=== PATIENT | male | born 1995 | race Caucasian/White ===

== ENCOUNTER 2017-12-29 05:32 | Emergency (ER) | payer OTHER, SELFPAY ==
[2017-12-29 06:29] LABS: #Lymphocytes 1.5 thou/uL (1.20-3.40); #Monocytes 0.2 thou/uL (0.11-0.59); #Neutrophils 2.7 thou/uL (1.40-6.50); %Basophils 0.7 % (0.0-1.0); %Eosinophils 0.9 % (0.0-10.0); %Monocytes 4.4 % (0.0-10.0); Hemoglobin 17.1 g/dL (14.0-18.0); Mean Corpuscular HGB CONC 34.9 g/dL (32.0-36.0); Mean Corpuscular Hemoglobin 29.9 pg (27.0-31.0); Mean Corpuscular Volume 85.7 fL (78.0-98.0); Mean Platelet Volume 6.6 fL (7.4-10.4); Platelet Count 283 thou/uL (130-400); RBC Distribution Width 11.4 % (11.5-14.5); Red Blood Cell (RBC) Count 5.73 mill/uL (4.70-6.10); White Blood Cell (WBC) Count 4.4 thou/uL (4.8-10.8)
[2017-12-29 06:50] LABS: ALT (SGPT) 28 U/L (8-55); AST (SGOT) 25 U/L (5-34); Albumin 5.5 g/dL (3.5-5.0); Alkaline Phosphatase 115 U/L (40-150); Anion Gap 17 mmol/L (10-20); BUN (Urea Nitrogen) 11 mg/dL (8.9-20.6); Bilirubin, Total 0.6 mg/dL (0.2-1.2); Calc. Creatinine Clearance 0 mL/min (70-130); Calcium 10.3 mg/dL (7.8-10.44); Carbon Dioxide 23 mmol/L (22-29); Chloride 107 mmol/L (98-107); Estimated GFR-MDRD Greater than 90; Globulin 3.9 g/dL (2.4-3.5); Glucose 93 mg/dL (70-105); Lipase 40 U/L (8-78); Potassium 4.1 mmol/L (3.5-5.1); Protein, Total 9.4 g/dL (6.0-8.3); Sodium 143 mmol/L (136-145)
[2017-12-29 06:58] LABS: Bilirubin Negative (Negative); Blood, Urine Negative (Negative); Clarity CLEAR (Clear); Glucose, Urine (Dipstick) Negative (Negative); Leukocyte Negative (Negative); Nitrite Negative (Negative); Protein, Urine (Dipstick) Negative (Neg-Trace); Specific Gravity, Urine 1.004 (1.002-1.036); Urobilinogen 0.2 mg/dL (0.2-1.0)
--- NOTE | 2017-12-29 09:21 | RAD ---
KUB: Date: 12/29/17 INDICATION: 22-year-old male with constipation. COMPARISON: None. FINDINGS: The lung bases are clear. The bowel gas pattern is unobstructed. There is a mild amount of retained s tool predominantly within the hepatic flexure and descending colon. No suspicious calcifications are present. No acute osseous abnormality is noted. 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 IMPRESSION: Mild amount of retained stool within the colon. POS: [facility]
== END 2017-12-29 07:55 | disposition home or self-care (01) ==
LOC: ERS 05:32
DX: K59.00 Constipation, unspecified (principal); K13.21 Leukoplakia of oral mucosa, including tongue; F17.290 Nicotine dependence, other tobacco product, uncomplicated
CPT/HCPCS: 74018; 80053; 81003; 83690; 85025; 94760

== ENCOUNTER 2019-09-04 14:36 | Emergency (ER) | payer OTHER, SELFPAY ==
[2019-09-04] MEDS ORDERED: HYDROcodone/Acetaminophen 5/325 mg Tablet ONE (14:56)
[2019-09-04] MEDS ORDERED: Ketorolac Tromethamine 30 MG/ML VIAL ONE (14:57)
--- NOTE | 2019-09-04 15:13 | RAD ---
Right foot 3 views HISTORY: Injury. FINDINGS: Lisfranc joint alignment is anatomic. Plantar arch is maintained. Soft tissue swelling is a pparent over the dorsum of the foot. Large os navicularis evident. IMPRESSION: Soft tissue swelling. No acute osseous abnormalities are demonstrated.
== END 2019-09-04 15:25 | disposition home or self-care (01) ==
LOC: ERS 14:36
DX: S90.31XA Contusion of right foot, initial encounter (principal); W20.8XXA Other cause of strike by thrown, projected or falling object, initial encounter
CPT/HCPCS: 96372; J1885

== ENCOUNTER 2020-09-04 14:50 | Outpatient (CLI) | payer BC ==
[2020-09-04 17:12] LABS: Hemoglobin 15.3 g/dL (13.5-17.5); Mean Corpuscular HGB CONC 34.4 g/dL (32.0-36.0); Mean Corpuscular Hemoglobin 28.8 pg (27.0-33.0); Mean Corpuscular Volume 83.8 fl (81.2-95.1); Mean Platelet Volume 10.5 fl (7.4-10.4); Platelet Count 284 10x3/uL (150-450); RBC Distribution Width 11.9 % (11.5-14.5); Red Blood Cell (RBC) Count 5.31 10x6/uL (4.32-5.72); White Blood Cell (WBC) Count 4.3 10x3/uL (3.5-10.5)
[2020-09-05 01:44] LABS: SARS-CoV-2 PCR by NAA Not Detected (NotDetected)
== END 2020-09-04 14:51 | disposition home or self-care (01) ==
LOC: LABBT 14:50
PROVIDERS: ATTEND Orthopaedic Surgery Hand Surgery
DX: Z01.812 Encounter for preprocedural laboratory examination (principal); Z20.822 Contact with and (suspected) exposure to COVID-19; M67.431 Ganglion, right wrist
CPT/HCPCS: 85027; 87635; U0003; U0005

== ENCOUNTER 2020-09-07 06:12 | Day surgery (SDC) | payer BC ==
[2020-09-05 13:51] VITALS: BMI 33.9
[2020-09-07] MEDS ORDERED: Sodium Chloride 0.9% 10 ML ONE (08:24)
[2020-09-07] MEDS ORDERED: Betamet Acet/Betamet Na Ph 30 MG/5 ML VIAL ONE (08:24)
[2020-09-07] MEDS ORDERED: Bupivacaine PF 0.5% 30 ML VIAL ONE (08:24)
[2020-09-07] MEDS ORDERED: Bacitracin Zinc Ointment 30 gm TUBE ONE (08:24)
[2020-09-07] MEDS ORDERED: Midazolam HCl 2 mg/2 ml Vial ONE (08:32)
[2020-09-07] MEDS ORDERED: Fentanyl 100 MCG/2 ML VIAL ONE (08:32)
[2020-09-07] MEDS ORDERED: PROPOFOL 200 MG/20 ML VIAL ONE (08:41)
[2020-09-07] MEDS ORDERED: Ondansetron PF 4 MG/2 ML Vial ONE (08:41)
[2020-09-07] MEDS ORDERED: Dexamethasone 20 MG/5 ML VIAL ONE (08:41)
[2020-09-07] MEDS ORDERED: Lidocaine 1% PF 5 ML VIAL ONE (08:41)
[2020-09-07] MEDS ORDERED: Ketorolac Tromethamine 30 MG/ML VIAL ONE (10:01)
== END 2020-09-07 10:50 | disposition home or self-care (01) ==
LOC: SDC 06:12
PROVIDERS: ATTEND Orthopaedic Surgery Hand Surgery
PROC: 0LB50ZZ Excision of Right Lower Arm and Wrist Tendon, Open Approach (ICD-10-PCS; principal; 2020-09-07)
DX: M67.431 Ganglion, right wrist (principal); F17.220 Nicotine dependence, chewing tobacco, uncomplicated
CPT/HCPCS: 88304; J0690; J0702; J1100; J1885; J2250; J2405; J2704; J3010; J3490; S0020